=== PATIENT | male | born 1975 | race Caucasian/White ===

== ENCOUNTER 2020-04-16 01:04 | Emergency (ER) | payer MEDICAID ==
[~2020-04-16] VITALS: Ht 157.5 cm; Wt 52.9 kg
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
--- NOTE | 2020-04-16 01:37 | NUR ---
Req. records from [facility] per pt permission.
--- NOTE | 2020-04-16 01:58 | NUR ---
PA at bedside.
[2020-04-16] MEDS ORDERED: CEPHALEXIN 500 MG CAPSULE PO ONE (02:30)
[2020-04-16] MEDS ORDERED: CEPHALEXIN 500 MG CAPSULE ONE (02:46)
[2020-04-16 02:48] VITALS: BP 155/85
--- NOTE | 2020-04-16 02:52 | NUR ---
Pt agrees with and understands discharge plan and instructions.
== END 2020-04-16 02:54 | disposition home or self-care (01) ==
LOC: ED 02:30
DX: S00.212A Abrasion of left eyelid and periocular area, initial encounter (principal); S00.81XA Abrasion of other part of head, initial encounter; K08.89 Other specified disorders of teeth and supporting structures; R55 Syncope and collapse; I10 Essential (primary) hypertension; Y08.89XA Assault by other specified means, initial encounter; Y93.89 Activity, other specified; Y92.89 Other specified places as the place of occurrence of the external cause; Y99.8 Other external cause status
CPT/HCPCS: 99283